=== PATIENT | male | born 1965 | race Caucasian/White ===

== ENCOUNTER 2024-01-29 04:52 | Emergency (ER) | payer MEDICAID, SELFPAY ==
[2024-01-29 04:58] VITALS: BP 135/98; PULSE 93; TEMP 36.4; O2SAT 99; BMI 34.4
--- NOTE | 2024-01-29 05:09 | ED.NAVMDI1 ---
HPI - Nausea/Vomiting/Diarrhea General Chief complaint: Nausea/Vomiting/Diarrhea Stated complaint: DIARRHEA Time Seen by Provider: 01/29/24 05:02 Source: patient Mode of arrival: walk-in Limitations: no limitations History of Present Illness HPI Narrative: This 58-year-old male who denies any significant medical history presents for evaluation of diarrhea since last Monday. The patient states for 2 days he had nausea and vomiting. That resolved and he has had diarrhea intermittently since that time. He states he is having 8-9 episodes a day. He denies any blood in it. He intermittently has some cramping in his left lower quadrant. He denies any weight loss. He denies any dizziness or syncope. He has no chest pain or shortness of breath. The patient states multiple times that he thinks he is just shutting down and needs an antibiotic. 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 He was seen by his family physician on Monday who thought that he may have a stomach flu although he has not eaten out at any restaurants and has no sick contacts at home. He denies any travel out of the country or recent antibiotic use. Related Data Allergies Allergy/AdvReac Type Severity Reaction Status Date / Time No Known Drug Allergies Allergy Verified 01/29/24 05:02 Review of Systems ROS Status of ROS 10 or more systems reviewed and unremarkable except as noted in history and below PFSH PFSH Social History Little interest or pleasure in doing things: not at all Feeling down, depressed, or hopeless: not at all Exam Narrative Exam Narrative: Vital signs and Nursing Notes reviewed: Patient is afebrile with a normal pulse, blood pressure is mildly elevated at 135/98, he is not hypoxic with pulse ox of 99% on room air General: Awake, alert, oriented, no acute distress, lying comfortably on the stretcher HEENT: Normocephalic atraumatic, mucous membranes are moist and pink, eyes are clear, normal conjunctiva, vision is grossly intact, posterior pharynx is normal in appearance. Neck: Supple Chest: Lungs are clear to auscultation with good air entry, there is no wheezing rhonchi or rales appreciated no accessory muscle use, patient is speaking in complete sentences-no chest wall tenderness to palpation CVS: Regular rate and rhythm S1-S2, no murmurs rubs or gallops, pulses are brisk and equal bilaterally ABD: Soft, nondistended, mild tenderness in the left lower quadrant with no rebound guarding or rigidity, bowel sounds are normal, no pulsatile masses appreciated Extremities: Moving all extremities, no lower extremity tenderness or swelling noted, negative Homans' sign, pulses are brisk and equal bilaterally Skin: Normal in appearance without rash,pallor, petechiae or purpura Neuro: No focal deficits Constitutional Vital Signs, click to edit/add: Last Vital Signs Temp 97.5 F L 01/29/24 04:58 Pulse 93 H 01/29/24 04:58 Resp 16 01/29/24 04:58 BP 135/98 H 01/29/24 04:58 Pulse Ox 99 01/29/24 04:58 O2 Del Method Room Air 01/29/24 04:58 Course Vital Signs Vital signs: Vital Signs Temperature 97.5 F L 01/29/24 04:58 Pulse Rate 93 H 01/29/24 04:58 Respiratory Rate 16 01/29/24 04:58 Blood Pressure 135/98 H 01/29/24 04:58 Pulse Oximetry 99 01/29/24 04:58 Oxygen Delivery Method Room Air 01/29/24 04:58 Temperature 97.5 F L 01/29/24 04:58 Pulse Rate 93 H 01/29/24 04:58 Respiratory Rate 16 01/29/24 04:58 Blood Pressure 135/98 H 01/29/24 04:58 Pulse Oximetry 99 01/29/24 04:58 Oxygen Delivery Method Room Air 01/29/24 04:58 MDM - Nausea/Vomiting/Diarrhea MDM Narrative Medical decision making narrative: This 58-year-old male with no segment medical history presents for evaluation of diarrhea starting last Monday when he had nausea and vomiting which resolved. He has had 8 or 9 episodes of loose stools and diarrhea per day since that time. He was seen by his family physician but his symptoms appear to be improving. His family physician thought he may have some food poisoning but he doubts that as he has not eaten any fast food and nobody else that eats the same food as him has been sick. He denied any fever. He denied any flank pain and at the time of his ER visit had no abdominal pain. An IV was placed and he was medicated with IV fluids and Bentyl. Routine labs are reviewed. His white count is normal at 11. Hemoglobin is stable. Electrolytes are normal. BUN is mildly elevated at 24. Creatinine is normal. Liver function tests are normal. The patient had stated to me several times that he felt that he was worn out from his job and needed antibiotics to cure this diarrheal illness. I had a lengthy discussion with him about treating diarrhea with antibiotics that is not truly an infectious diarrhea. Ultimately he agreed that antibiotics may not be indicated and he will be given a prescription for Lomotil after receiving a first dose in the ER and Bentyl for cramps. I encouraged him to drink plenty of fluids and cut back on any greasy or fatty food. He was not able to produce any stool specimen or have any episodes of diarrhea while in the emergency department for us to culture. He was encouraged return the emergency department for worsening symptoms, fever, abdominal pain or any concerns. Lab Data Labs: Lab Results 01/29/24 Range/Units 05:17 WBC 11.0 (4.0-11.0) 10^3/uL RBC 5.24 (4.70-6.10) 10^6/uL Hgb 15.4 (14.0-18.0) g/dL Hct 46.8 (42.0-54.0) % MCV 89.3 (80.0-94.0) fL MCH 29.4 (25.9-34.0) pg MCHC 32.9 (29.9-35.2) g/dL RDW 13.4 (11.0-15.0) % Plt Count 298 (150-450) 10^3/uL MPV 9.7 (9.5-13.5) fL Neut % (Auto) 49.4 (43.0-75.0) % Lymph % (Auto) 35.9 (20.5-60.0) % Hyde % (Auto) 10.9 (1.7-12.0) % Eos % (Auto) 2.8 (0.9-7.0) % Baso % (Auto) 0.5 (0.2-2.0) % Neut # (Auto) 5.5 (1.4-6.5) 10^3/uL Lymph # (Auto) 4.0 H (1.2-3.8) 10^3/uL Hyde # (Auto) 1.2 H (0.3-0.8) 10^3/uL Eos # (Auto) 0.3 (0.0-0.7) 10^3/uL Baso # (Auto) 0.1 (0.0-0.1) 10^3/uL Abs Immat Gran (auto) 0.05 H (0.00-0.03) 10^3/uL Imm/Tot Granulo (auto) 0.5 (0.0-0.5) % Sodium 138 (136-145) mmol/L Potassium 4.7 (3.5-5.1) mmol/L Chloride 105 (98-107) mmol/L Carbon Dioxide 25.7 (21.0-32.0) mmol/L Anion Gap 12.0 BUN 24.0 H (7.0-18.0) mg/dL Creatinine 1.06 (0.70-1.30) mg/dL Est GFR ( Amer) >60 (>=60 mL/min/1.73m^2) Est GFR (Non-Af Amer) >60 (>=60 mL/min/1.73m^2) BUN/Creatinine Ratio 22.6 Glucose 113 H (74-106) mg/dL Calcium 8.8 (8.5-10.1) mg/dL Total Bilirubin 0.2 (0.2-1.0) mg/dL AST 10 L (15-37) U/L ALT 23 (16-63) U/L Alkaline Phosphatase 87 (46-116) U/L Total Protein 6.8 (6.4-8.2) g/dL Albumin 3.1 L (3.4-5.0) g/dL Globulin 3.7 g/dL Albumin/Globulin Ratio 0.8 Discharge Plan Discharge Chief Complaint: Nausea/Vomiting/Diarrhea Clinical Impression: Diarrhea Patient Disposition: Home, Self-Care Time of Disposition Decision: 06:12 Condition: Good Print Language: Belgian Instructions: Acute Diarrhea (ED) Referrals: Physician,Non-Staff, MD [Primary Care Provider] - 1 week
[2024-01-29 05:23] LABS: Basophils Absolute Auto 0.1 10^3/uL (0.0-0.1); Basophils Percent Auto 0.5 % (0.2-2.0); Eosinophils Absolute Auto 0.3 10^3/uL (0.0-0.7); Eosinophils Percent Auto 2.8 % (0.9-7.0); Hematocrit 46.8 % (42.0-54.0); Hemoglobin 15.4 g/dL (14.0-18.0); Immature Granulocytes Abs Auto 0.05 10^3/uL (0.00-0.03); Immature Granulocytes Pct Auto 0.5 % (0.0-0.5); Lymphocytes Percent Auto 35.9 % (20.5-60.0); Mean Corpuscular HGB Conc 32.9 g/dL (29.9-35.2); Mean Corpuscular Hemoglobin 29.4 pg (25.9-34.0); Mean Corpuscular Volume 89.3 fL (80.0-94.0); Mean Platelet Volume 9.7 fL (9.5-13.5); Monocytes Absolute Auto 1.2 10^3/uL (0.3-0.8); Monocytes Percent Auto 10.9 % (1.7-12.0); Neutrophils Absolute Auto 5.5 10^3/uL (1.4-6.5); Neutrophils Percent Auto 49.4 % (43.0-75.0); Platelet Count 298 10^3/uL (150-450); Red Blood Count 5.24 10^6/uL (4.70-6.10); Red Cell Distribution Width 13.4 % (11.0-15.0)
[2024-01-29] MEDS: DICYCLOMINE HCL 10 MG CAPSULE 20 MG PO (05:29)
[2024-01-29] MEDS: 0.9 % SODIUM CHLORIDE 1,000 ML 1000 ML IV (05:29)
[2024-01-29 05:39] LABS: Alanine Aminotransferase 23 U/L (16-63); Albumin Globulin Ratio 0.8; Albumin Level 3.1 g/dL (3.4-5.0); Alkaline Phosphatase 87 U/L (46-116); Aspartate Amino Transferase 10 U/L (15-37); BUN Creatinine Ratio 22.6; Bilirubin Total 0.2 mg/dL (0.2-1.0); Calcium 8.8 mg/dL (8.5-10.1); Carbon Dioxide 25.7 mmol/L (21.0-32.0); Chloride 105 mmol/L (98-107); Estimated GFR (African America >60 (>=60 mL/min/1.73m^2); Estimated GFR (Non-African Ame >60 (>=60 mL/min/1.73m^2); Globulin 3.7 g/dL; Glucose 113 mg/dL (74-106); Potassium 4.7 mmol/L (3.5-5.1); Sodium 138 mmol/L (136-145); Total Protein 6.8 g/dL (6.4-8.2)
[2024-01-29] MEDS: DIPHENOXYLATE HCL 2.5 MG/ATROPINE 0.025 MG TABLET 1 TAB PO (06:23)
== END 2024-01-29 06:36 | disposition home or self-care (01) ==
PROVIDERS: Emergency Provider Emergency Medicine
DX: R19.7 Diarrhea, unspecified (principal)
CPT/HCPCS: 36415; 80053; 85025; 96360; 99284